=== PATIENT | male | born 1985 | race Caucasian/White ===

== ENCOUNTER 2019-12-29 17:14 | Emergency (ER) | payer BC ==
[2019-12-29 18:16] LABS: ABS Lymphocytes 1.9 10^3/ul (1.0-4.8); ABS Monocytes 0.5 10^3/ul (0-0.8); ABS Neutrophils 3.8 10^3/ul (1.5-7.7); Eosinophil % 0.6 %; Hematocrit 43 % (42-52); Hemoglobin 15.6 g/dL (14.0-18.0); Lymphocyte % 29.8 %; Mean Corpuscular HGB Conc 36 g/dL (31-36); Mean Corpuscular Hemoglobin 33 pg (27-31); Mean Corpuscular Volume 92 fL (80-94); Mean Platelet Volume 7.9 fL (7.4-10.4); Nucleated Red Blood Cells % 0.1; Platelet Count 259 10^3/uL (150-450); Red Blood Count 4.69 10^6 /uL (4.18-5.48); Red Cell Distribution Width 12 % (10-15); White Blood Count 6.3 10^3/uL (3.5-10.8)
[2019-12-29 18:20] LABS: INR 1.16 (0.82-1.09)
[2019-12-29 18:31] LABS: Albumin 5.2 g/dL (3.2-5.2); Albumin/Globulin Ratio 1.6 (1-3); BUN/Creatinine Ratio 16.2 (8-20); Calcium 11.1 mg/dL (8.6-10.3); EGFR African American 104.7 (>60); EGFR Non-African American 86.5 (>60); Globulin 3.3 g/dL (2-4); Potassium 3.9 mmol/L (3.5-5.0); Total Bilirubin 0.8 mg/dL (0.2-1.0); Total Protein 8.5 g/dL (6.4-8.9)
--- NOTE | 2019-12-29 20:41 | ED ---
HPI Chest Pain - HPI Summary HPI Summary: 34-year-old male presents with chest pain for the past couple days. He states that was started as a pressure and now became pain today. He states he's been very anxious. He has never had this before. Denies any shortness breath. No palpitations. No cough. No fever. No abd pain. Pain does not change with positional changes. Pain is intermittent. He is not currently having the pain. He denies any pain or swelling in his calf muscles. Does smoke. No drug use. Grandparents do have a history of cardiac disease. Has no medical conditions. - History of Current Complaint Chief Complaint: EDChestPainROMI Time Seen by Provider: 12/29/19 20:06 Pain Intensity: 2 - Allergy/Home Medications Allergies/Adverse Reactions: Allergies Allergy/AdvReac Type Severity Reaction Status Date / Time No Known Allergies Allergy Verified 12/29/19 19:36 Home Medications: Home Medications Multivitamin [Multivitamins] 1 cap PO DAILY 12/29/19 [History Confirmed 12/29/19 ] PMH/Surg Hx/FS Hx/Imm Hx Endocrine/Hematology History: Denies: Hx Anticoagulant Therapy Respiratory History: Denies: Hx Asthma Infectious Disease History: No Infectious Disease History: Denies: Traveled Outside the [place] in Last 30 Days - Family History Known Family History: Positive: Cardiac Disease - Social History Substance Use Type: Reports: None Hx Tobacco Use: Yes Review of Systems Negative: Fever Positive: Chest Pain Negative: Shortness Of Breath, Cough All Other Systems Reviewed And Are Negative: Yes Physical Exam Triage Information Reviewed: Yes Vital Signs On Initial Exam: Initial Vitals Temp Pulse Resp BP Pulse Ox 98.6 F 71 16 149/79 100 12/29/19 17:18 12/29/19 17:18 12/29/19 17:18 12/29/19 17:18 12/29/19 17:18 Vital Signs Reviewed: Yes Appearance: Positive: Well-Appearing Skin: Positive: Warm, Dry Head/Face: Positive: Normal Head/Face Inspection Eyes: Positive: Normal, Conjunctiva Clear ENT: Positive: Pharynx normal Respiratory/Lung Sounds: Positive: Clear to Auscultation, Breath Sounds Present Cardiovascular: Positive: Normal, RRR Abdomen Description: Positive: Nontender, Soft Bowel Sounds: Positive: Present Musculoskeletal: Positive: Normal Neurological: Positive: Normal Psychiatric: Positive: Normal Procedures - Sedation Patient Received Moderate/Deep Sedation with Procedure: No Diagnostics - Vital Signs Vital Signs Temp Pulse Resp BP Pulse Ox 12/29/19 19:21 98.8 F 69 16 126/83 99 12/29/19 17:18 98.6 F 71 16 149/79 100 - Laboratory Lab Results: Lab Results 12/29/19 12/29/19 12/29/19 Range/Units 18:06 18:06 18:06 WBC 6.3 (3.5-10.8) 10^3/uL RBC 4.69 (4.18-5.48) 10^6 /uL Hgb 15.6 (14.0-18.0) g/dL Hct 43 (42-52) % MCV 92 (80-94) fL MCH 33 H (27-31) pg MCHC 36 (31-36) g/dL RDW 12 (10-15) % Plt Count 259 (150-450) 10^3/uL MPV 7.9 (7.4-10.4) fL Neut % (Auto) 61.3 % Lymph % (Auto) 29.8 % [place] % (Auto) 7.6 % Eos % (Auto) 0.6 % Baso % (Auto) 0.7 % Absolute Neuts (auto) 3.8 (1.5-7.7) 10^3/ul Absolute Lymphs (auto) 1.9 (1.0-4.8) 10^3/ul Absolute Monos (auto) 0.5 (0-0.8) 10^3/ul Absolute Eos (auto) 0.0 (0-0.6) 10^3/ul Absolute Basos (auto) 0.0 (0-0.2) 10^3/ul Absolute Nucleated RBC 0.0 10^3/ul Nucleated RBC % 0.1 INR (Anticoag Therapy) 1.16 H (0.82-1.09) Sodium 139 (135-145) mmol/L Potassium 3.9 (3.5-5.0) mmol/L Chloride 102 (101-111) mmol/L Carbon Dioxide 28 (22-32) mmol/L Anion Gap 9 (2-11) mmol/L BUN 16 (6-24) mg/dL Creatinine 0.99 (0.67-1.17) mg/dL Est GFR ( Amer) 104.7 (>60) Est GFR (Non-Af Amer) 86.5 (>60) BUN/Creatinine Ratio 16.2 (8-20) Glucose 94 (70-100) mg/dL Calcium 11.1 H (8.6-10.3) mg/dL Total Bilirubin 0.80 (0.2-1.0) mg/dL AST 19 (13-39) U/L ALT 22 (7-52) U/L Alkaline Phosphatase 42 (34-104) U/L Troponin I 0.00 (<0.03) ng/mL Total Protein 8.5 (6.4-8.9) g/dL Albumin 5.2 (3.2-5.2) g/dL Globulin 3.3 (2-4) g/dL Albumin/Globulin Ratio 1.6 (1-3) Result Diagrams: 12/29/19 18:06 12/29/19 18:06 Lab Statement: Any lab studies that have been ordered have been reviewed, and results considered in the medical decision making process. - Radiology chest Radiology Interpretation Completed By: ED Physician Summary of Radiographic Findings: no active disease - EKG No standard instances Cardiac Rate: NL EKG Rhythm: Sinus Rhythm Summary of EKG Findings: sinus rhythm Chest Pain Course/Dx - Course Course Of Treatment: 34-year-old male presents with chest pain for the past couple days. He states that was started as a pressure and now became pain today. He states he's been very anxious. He has never had this before. Denies any shortness breath. No palpitations. No cough. No fever. No abd pain. Pain does not change with positional changes. Pain is intermittent. He is not currently having the pain. He denies any pain or swelling in his calf muscles. Does smoke. No drug use. Grandparents do have a history of cardiac disease. Has no medical conditions. On exam lungs clear to auscultation. Heart regular rate and rhythm. EKG shows sinus rhythm. Troponins 2 were 0. Heart score of 2. No risk for PE. Chest x-ray normal. Patient understands and agrees plan. - Chest Pain Differential Diagnosis/HQI/PQRI: Angina, Chest Wall, Lower Respiratory Infection - Diagnoses Provider Diagnoses: Atypical chest pain Discharge ED - Sign-Out/Discharge Documenting (check all that apply): Patient Departure - Discharge Plan Condition: Good Disposition: HOME Patient Education Materials: Noncardiac Chest Pain (ED) Referrals: [facility] [place] [facility]FERR[facility] [Outside] Additional Instructions: take tyenlol or ibuprofen every 6 hours for pain Establish care with primary Return to ED if develop any new or worsening symptoms - Billing Disposition and Condition Condition: GOOD Disposition: Home
[2019-12-29 21:53] VITALS: BP 150/91
== END 2019-12-29 21:55 | disposition home or self-care (01) ==
LOC: ED 17:14
DX: R07.89 Other chest pain (principal)
CPT/HCPCS: 36415; 71046; 80053; 84484; 85025; 85610; 93005; 99282